=== PATIENT | male | born 1945 | race Caucasian/White ===

== ENCOUNTER 2017-02-18 13:25 | Observation (INO) ==
[2017-02-18] MEDS ORDERED: Ondansetron 4 MG/2 ML VIAL IVP ONE ×2 (13:37→15:15)
[2017-02-18] MEDS ORDERED: 0.9 % Sodium Chloride 1,000 ML IVC ONE ×2 (13:38→15:54)
--- NOTE | 2017-02-18 13:50 | Emergency Department Note ---
Disposition Clinical Impression: Diverticulitis large intestine w/o perforation or abscess w/bleeding, SELENE ( acute kidney injury), GI bleed Disposition: Admitted As Inpatient Condition: Fair Abdominal Pain HPI - General Chief Complaint: ED Abdominal Pain Stated Complaint: "abdominal pain, down middle to both sides" Time Seen by Provider: 02/18/17 13:30 Source: patient, EMS Mode of arrival: EMS Limitations: no limitations Nursing Notes Reviewed: Yes Vital Signs Reviewed: Yes - History of Present Illness HPI Narrative: Mr. Ann is a 72-year-old male with a past history of coronary artery disease, hyperlipidemia, hypertension, and constipation. He presents to the emergency department today with periumbilical abdominal pain that started 3 hours ago. He states that this radiates downwards and is severe. He states that he was walking earlier today and went and laid down for a nap, and then the pain started about an hour into his nap. He states that he has had a couple small bowel movements today and in the past couple days and describes them as black and tarry. However, he denies any hematochezia. This pain comes and goes and lasts about 15 minutes each episode. ROS: He denies fever but complains of chills, denies chest pain pressure, tightness, shortness of breath, back pain. Pain Scale: 9 - Related Data Allergies Allergy/AdvReac Type Severity Reaction Status Date / Time No Known Allergies Allergy Verified 02/18/17 13:28 Eyes: Denies: eye pain, eye discharge, vision change Cardiovascular: Denies: chest pain, dyspnea on exertion, orthopnea Respiratory: Denies: cough, dyspnea Gastrointestinal: Reports: abdominal pain, nausea, melena. Denies: vomiting Musculoskeletal: Denies: back pain Neurological: Denies: headache Endocrine: Denies: fatigue Abdominal Pain PMH - Past Medical History Medical history: Reports: coronary artery disease, hypertension Psychiatric history: Reports: no psych history - Social History Smoking status: Never smoker Alcohol use: Reports: none Drug use: Reports: none Physical Exam - General Limitations: no limitations General appearance: alert - Head Head exam: atraumatic, normocephalic, normal inspection - Eye Eye exam: Present: normal appearance - ENT ENT exam: normal exam, normal oropharynx, mucous membranes moist - Neck Neck exam: Present: normal inspection, full ROM, trachea midline - Respiratory Respiratory exam: Present: normal lung sounds bilaterally - Cardiovascular Cardiovascular exam: Present: normal rhythm, bradycardia, normal heart sounds - Abdominal Exam Abdominal exam: Present: tenderness. Absent: distention, guarding, Johnson's sign, tenderness at [place], pulsatile mass Abdominal tenderness: Present: LLQ, suprapubic Course Course Narrative: Mr. Ann presented to the emergency department with severe abdominal pain. Due to his history of coronary artery disease we wanted to rule out myocardial infarction with chest x-ray EKG and troponins. A CT of his abdomen was ordered to rule out diverticulitis. - Reevaluation(s) Reevaluation #1: Mr. Ann states that he started feeling a little better but not much after having a bowel movement 15 minutes ago the Zofran has helped with his nausea. Time: 14:15 Reevaluation #2: Mr. Ann is still having abdominal pain and has also had a couple episodes of diarrhea. His pain level has remained the same upon reevaluation. He continues to have diffuse tenderness to palpation in the lower abdomen. Vital Signs Temperature 97.4 F L 02/18/17 13:32 Pulse Rate 60 02/18/17 13:32 Respiratory Rate 20 02/18/17 13:32 Blood Pressure 130/83 02/18/17 13:32 O2 Sat by Pulse Oximetry 97 02/18/17 13:32 Temperature 97.4 F L 02/18/17 13:32 Pulse Rate 54 02/18/17 13:33 Respiratory Rate 16 02/18/17 13:33 Blood Pressure 110/51 02/18/17 13:33 O2 Sat by Pulse Oximetry 100 02/18/17 13:33 Oxygen Delivery Oxygen Delivery Nasal Cannula Abdominal Pain - [facility] Narrative Medical decision making narrative: Mr. Ann is a 72-year-old male with a past medical history of CAD, hypertension, hyperlipidemia that presented to the emergency department with severe lower abdominal pain that started approximately 3 hours ago that was associated with diarrhea and black tarry stools. His vital signs were normal except for bradycardia and this is most likely due to the metoprolol that he takes. Myocardial infarction was ruled out with a negative chest x-ray, and EKG demonstrating sinus bradycardia, and a negative troponin. A AAA was ruled out using ultrasound of the abdomen. A CT scan of the abdomen was performed and revealed diverticulitis. Labs reveal a leukocytosis, a creatinine of 1.6 which is new for him when comparing other labs from previous visits, as well as a positive Hemoccult. While in the emergency department, he was given IV fluids , ciprofloxacin as well as metronidazole. Due to the fact that he has a complicated diverticulitis, acute kidney injury, and a GI bleed, I thought it would be best to admit this gentleman to the hospital for inpatient treatment. I spoke with Dr. Johnson, the hospitalist and he agrees to accept this admission. - Lab Data Result diagrams: 02/18/17 15:21 02/18/17 15:21 Lab Results 02/18/17 02/18/17 02/18/17 Range/Units 14:15 14:15 14:59 WBC (4.3-11.1) K/mcL RBC (4.19-5.50) M/mcL Hgb (12.9-16.9) g/dL Hct (37.5-50.1) % MCV (83.0-100.0) fL MCH (28.0-33.3) pg MCHC (31.6-35.5) g/dL RDW (11.5-14.5) % Plt Count (140-400) K/mcL MPV (9.4-12.4) fL Immature Gran % (0-4) % Seg Neutrophils % % Lymphocytes % % Monocytes % % Eosinophils % % Basophils % % Neutrophils # (1.6-8.9) K/mcL Lymphocytes # (0.6-4.6) K/mcL Monocytes # (0.0-1.3) K/mcL Eosinophils # (0.0-0.6) K/mcL Basophils # (0.0-0.2) K/mcL Immature Plt Fraction (1.1-6.1) % Sodium (136-145) mEq/L Potassium (3.5-4.5) mEq/L Chloride (98-109) mEq/L Carbon Dioxide (19-29) mEq/L BUN (8-26) mg/dL Creatinine (0.72-1.25) mg/dL Est GFR ( Amer) (> 60) Est GFR (Non-Af Amer) (> 60) BUN/Creatinine Ratio (6-26) Glucose (70-99) mg/dL Calculated Osmolality (280-300) Calcium (8.6-10.8) mg/dL Total Bilirubin (0.2-1.2) mg/dL AST (5-34) Units/L ALT (0-55) Units/L Alkaline Phosphatase (38-126) Units/L Troponin I (0-0.03) ng/mL Serum Total Protein (6.0-8.3) g/dL Albumin (3.5-5.0) g/dL Globulin (2.4-3.5) g/dL Albumin/Globulin Ratio (1.1-2.2) Lipase (8-78) Units/L Urine Color Red A (Yellow) Urine Clarity Clear (Clear) Urine pH 6.0 (5.0-8.0) pH Units Ur Specific [place] 1.016 (1.010-1.025) Urine Protein 30 H (Neg-Trace) mg/dL Urine Glucose (UA) Normal (Normal) mg/dL Urine Ketones 15 H (Negative) mg/dL Urine Blood Negative (Negative) Urine Nitrite Negative (Negative) Urine Bilirubin Moderate H (Negative) Urine Urobilinogen 2.0 H (Normal) mg/dL Ur Leukocyte Esterase Small H (Negative) Urine Microscopic RBC 3-5 H (0-3) per hpf Urine Microscopic WBC 0-3 (0-3) per hpf Ur Squamous Epith Cells Moderate H (None-Few) per lpf Urine Bacteria None Seen (None-Few) per hpf Hyaline Casts Few (None-Few) per lpf Ur Culture Indicated? YES A (NO) Stool Occult Blood Positive A (Negative) Specimen Rejected Hemolyzed 02/18/17 02/18/17 02/18/17 Range/Units 15:21 15:21 15:21 WBC 18.8 H (4.3-11.1) K/mcL RBC 5.07 (4.19-5.50) M/mcL Hgb 15.6 (12.9-16.9) g/dL Hct 46.3 (37.5-50.1) % MCV 91.3 (83.0-100.0) fL MCH 30.8 (28.0-33.3) pg MCHC 33.7 (31.6-35.5) g/dL RDW 12.9 (11.5-14.5) % Plt Count 254 (140-400) K/mcL MPV 9.3 L (9.4-12.4) fL Immature Gran % 0.4 (0-4) % Seg Neutrophils % 87.9 % Lymphocytes % 4.9 % Monocytes % 6.5 % Eosinophils % 0.1 % Basophils % 0.2 % Neutrophils # 16.6 H (1.6-8.9) K/mcL Lymphocytes # 0.9 (0.6-4.6) K/mcL Monocytes # 1.2 (0.0-1.3) K/mcL Eosinophils # 0.0 (0.0-0.6) K/mcL Basophils # 0.0 (0.0-0.2) K/mcL Immature Plt Fraction 2.8 (1.1-6.1) % Sodium 137 (136-145) mEq/L Potassium 4.2 (3.5-4.5) mEq/L Chloride 106 (98-109) mEq/L Carbon Dioxide 22 (19-29) mEq/L BUN 34 H (8-26) mg/dL Creatinine 1.66 H (0.72-1.25) mg/dL Est GFR ( Amer) 50 L (> 60) Est GFR (Non-Af Amer) 41 L (> 60) BUN/Creatinine Ratio 20 (6-26) Glucose 129 H (70-99) mg/dL Calculated Osmolality 293 (280-300) Calcium 9.8 (8.6-10.8) mg/dL Total Bilirubin 1.7 H (0.2-1.2) mg/dL AST 21 (5-34) Units/L ALT 23 (0-55) Units/L Alkaline Phosphatase 61 (38-126) Units/L Troponin I 0.00 (0-0.03) ng/mL Serum Total Protein 7.2 (6.0-8.3) g/dL Albumin 3.8 (3.5-5.0) g/dL Globulin 3.4 (2.4-3.5) g/dL Albumin/Globulin Ratio 1.1 (1.1-2.2) Lipase 14 (8-78) Units/L Urine Color (Yellow) Urine Clarity (Clear) Urine pH (5.0-8.0) pH Units Ur Specific [place] (1.010-1.025) Urine Protein (Neg-Trace) mg/dL Urine Glucose (UA) (Normal) mg/dL Urine Ketones (Negative) mg/dL Urine Blood (Negative) Urine Nitrite (Negative) Urine Bilirubin (Negative) Urine Urobilinogen (Normal) mg/dL Ur Leukocyte Esterase (Negative) Urine Microscopic RBC (0-3) per hpf Urine Microscopic WBC (0-3) per hpf Ur Squamous Epith Cells (None-Few) per lpf Urine Bacteria (None-Few) per hpf Hyaline Casts (None-Few) per lpf Ur Culture Indicated? (NO) Stool Occult Blood (Negative) Specimen Rejected - Radiology Data Radiology results reviewed: Yes I reviewed the patient's radiology results. - EKG Data EKG results narrative: EKG performed at 1347 on 02/18/2017 Ventricular rate 49 bpm IN interval 193 MS QRS duration 99 MS QT/QTc 449/420 MS Normal axis Normal sinus bradycardia at a rate of 49 bpm - Core Measures AMI Core Measures Followed: Yes Attestation Statement - Attestation Attestation: I examined this patient and my medical decision-making was reviewed with the MANAGER FINANCIAL/PA/Advanced Practice Nurse/Resident Physician. I agree with the documented findings, disposition and treatment plan as described except to the extent set forth below.
--- NOTE | 2017-02-18 13:54 | Emergency Department Note ---
START Narrative - START START: I examined this patient and my medical decision-making was reviewed with the CHIEF OF INTERNAL MEDICINE/PA/Advanced Practice Nurse/Resident Physician. I agree with the documented findings, disposition and treatment plan as described except to the extent set forth below. Patient presents with abdominal pain and history of black tarry stools. Will need abdominal pain workup as well as possible GI bleed. EKG showed sinus bradycardia.
[2017-02-18 15:03] LABS: Bilirubin,Urine Moderate (Negative); Blood,Urine Negative (Negative); Clarity,Urine Clear (Clear); Color,Urine Red (Yellow); Glucose,Urine (UA) Normal (Normal); Ketones,Urine 15 mg/dL (Negative); Leukocyte Esterase,Urine Small (Negative); Nitrite,Urine Negative (Negative); Protein,Urine 30 mg/dL (Neg-Trace); Specific Gravity,Urine 1.016 (1.010-1.025)
[2017-02-18 15:05] LABS: Bacteria,Urine None Seen per hpf (None-Few); Squamous Epithelial Cell,Urine Moderate per lpf (None-Few); WBC,Urine 0-3 per hpf (0-3)
[2017-02-18 15:27] LABS: Hyaline Casts,Urine Few per lpf (None-Few)
[2017-02-18 15:28] LABS: Basophils % 0.2 %; Eosinophils % 0.1 %; Hematocrit 46.3 % (37.5-50.1); Hemoglobin 15.6 g/dL (12.9-16.9); Immature Granulocytes % 0.4 % (0-4); Immature Platelets 2.8 % (1.1-6.1); Lymphocytes # 0.9 K/mcL (0.6-4.6); Lymphocytes % 4.9 %; Mean Corpuscular HGB Conc 33.7 g/dL (31.6-35.5); Mean Corpuscular Hemoglobin 30.8 pg (28.0-33.3); Mean Corpuscular Volume 91.3 fL (83.0-100.0); Mean Platelet Volume 9.3 fL (9.4-12.4); Monocytes # 1.2 K/mcL (0.0-1.3); Monocytes % 6.5 %; Neutrophils # 16.6 K/mcL (1.6-8.9); Platelet Count 254 K/mcL (140-400); Red Blood Count 5.07 M/mcL (4.19-5.50); Red Cell Distribution Width 12.9 % (11.5-14.5); Segmented Neutrophils % 87.9 %
[2017-02-18 15:42] LABS: Albumin 3.8 g/dL (3.5-5.0); Albumin/Globulin Ratio 1.1 (1.1-2.2); Bilirubin,Total 1.7 mg/dL (0.2-1.2); Calcium 9.8 mg/dL (8.6-10.8); Globulin 3.4 g/dL (2.4-3.5); Potassium 4.2 mEq/L (3.5-4.5); Total Protein 7.2 g/dL (6.0-8.3)
[2017-02-18] MEDS ORDERED: *HR* Morphine 2 MG/ML SYRINGE IVP ONE (15:48)
[2017-02-18] MEDS ORDERED: MetroNIDAZOLE 500 MG/100 ML 500 MG/100 ML BAG IVPB ONE (16:09)
[2017-02-18] MEDS ORDERED: Pantoprazole 40 MG VIAL IVP SCH (16:15)
--- NOTE | 2017-02-18 16:25 | Electrocardiograph Report ---
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
[2017-02-18] MEDS: Pantoprazole 40 MG in 0.9 % Sodium Chloride Mini Bag 100 ML IVC SCH ×3 (16:50→22:25)
--- NOTE | 2017-02-18 17:09 | Internal Med History&Physical ---
Date of Encounter: 02/18/17 Time of Encounter: 16:45 Assessment and Plan (1) Diverticulitis large intestine w/o perforation or abscess w/bleeding Current visit: Yes Status: Acute Acute diverticulitis or inflammatory colitis seen on CT abdomen and pelvis Nothing by mouth IV fluids, IV pain control, IV Protonix, IV Zofran IV Flagyl IV Cipro Will need colonoscopy after acute flareup has improved Labs in a.m. (2) CAD (coronary artery disease) Current visit: Yes Status: Chronic Chronic, status post CABG Continue atorvastatin, hold aspirin in view of acute diverticulitis and possible GI bleed Qualifiers: Coronary Disease-Associated Artery/Lesion type: [place] artery [place] vs. transplanted heart: [place] heart Associated angina: without angina Qualified Code(s): I25.10 - Atherosclerotic heart disease of [place] coronary artery without angina pectoris (3) Essential hypertension Current visit: Yes Status: Chronic Controlled, monitor: Continue home meds (4) SELENE (acute kidney injury) Current visit: Yes Status: Acute Secondary to vomiting and diarrhea Continue IV fluids, labs in a.m. Internal Medicine - H&P: HPI Chief complaint: Abdominal pain Admitted From: Emergency Dept History of present illness: Mr. Ann is a 72 year old male with past medical history of hypertension and coronary artery disease. He presents to the ED with complaints of abdominal pain and vomiting and diarrhea. Patient states symptoms started this morning suddenly. Patient rates the pain about 7/10 and is cramping in nature. It is almost generalized but mainly the left lower quadrant. Worse with food intake. No alleviating factors. He does have associated nausea and vomiting. He has had several episodes of vomiting with no blood in emesis and is nonbilious. Patient also has had several episodes of diarrhea and his last bowel movement had some blood in it. Patient denies chest pain denies shortness of breath denies palpitations dizziness or headache or any other problems. No other associated symptoms. On examination patient is awake and alert not in any distress. His sisters are at bedside. Patient has been tolerating the ED and the initial findings or positive for acute diverticulitis or colitis seen on CT abdomen. Patient is being admitted for acute diverticulitis. Patient and family members have been explained about his condition and plan of care. They understood and agreed. No unanswered questions. Patient will be kept nothing by mouth, will be on IV fluids and IV pain control and IV Protonix. CODE STATUS full code. Past Med Surg Social Fam HX - Past Medical History Medical history: coronary artery disease, hypertension Psychiatric history: no psych history - Social History Smoking Status: Never smoker Smokeless Tobacco Status: No Alcohol use: none Drug use: none Internal Medicine - H&P: Meds Aspirin Enteric Coated [Aspirin EC] 81 mg PO DAILY 02/18/17 [History] Atorvastatin [Lipitor] 40 mg PO HS 02/18/17 [History] Carvedilol 3.125 mg PO BID 02/18/17 [History] Docusate [Colace] 100 mg PO HS 02/18/17 [History] Lisinopril [Zestril] 5 mg PO BID 02/18/17 [History] Loratadine [Claritin] 10 mg PO DAILY 02/18/17 [History] Ubidecarenone [Co Q-10] 10 mg PO DAILY 02/18/17 [History] Allergies No Known Allergies Allergy (Verified 02/18/17 13:28) All Systems PM: A 10-system review of systems was performed and is negative for pertinent findings except as documented above in the HPI. - Constitutional Constitutional: fatigue, weakness, no fever(s) - EENT Eyes: no blurry vision - Cardiovascular Cardiovascular ROS IM: no chest pain, no diaphoresis, no dyspnea, no dyspnea on exertion, no orthopnea, no syncope - Respiratory Respiratory: no cough, no dyspnea, no dyspnea on exertion, no wheezing, no chest congestion - Gastrointestinal Gastrointestinal: abdominal pain, cramping, nausea, vomiting, no hematemesis, no loose stools, no melena - Genitourinary Genitourinary ROS male: no dysuria - Neurological Neurological ROS: no abnormal gait, no abnormal speech, no dizziness, no numbness, no tingling - Constitutional Vitals: Temp Pulse Resp BP Pulse Ox 97.4 F L 54 16 110/51 100 02/18/17 13:32 02/18/17 13:33 02/18/17 13:33 02/18/17 13:33 02/18/17 13:33 General appearance: Present: A&O X 3, pleasant, no acute distress, answers questions appropriately - Head Head exam: Present: atraumatic - ENT ENT exam: Present: mucous membranes dry - Neck Neck exam general surgery: Present: supple - Respiratory Respiratory exam: Present: CTAB. Absent: rhonchi, wheezes, tachypnea - Cardiovascular Cardiovascular exam: Present: RRR, +S1, +S2 - GI/Abdominal GI/Abdominal exam: Present: soft, tenderness (Left lower quadrant). Absent: distended, firm, guarding, rigid - Extremities Exam Extremities exam: Present: radial pulses palpable and symetrical. Absent: cyanotic, tenderness - Neurological Exam Neurological exam: Present: alert, oriented X3, no focal deficits Internal Med - H&P Results - Labs CBC & Chem 7: 02/18/17 15:21 02/18/17 15:21
[2017-02-18] MEDS ORDERED: Pantoprazole 40 MG VIAL IVP ONE (17:16)
[2017-02-18] MEDS ORDERED: Naloxone 0.4 MG/ML INJ IVP PRN (17:23)
[2017-02-18] MEDS ORDERED: Ondansetron 4 MG/2 ML VIAL IVP PRN (17:23)
[2017-02-18] MEDS ORDERED: *HR* Morphine 2 MG/ML SYRINGE IVP PRN (17:23)
[2017-02-18] MEDS: 0.9 % Sodium Chloride 1,000 ML IVC SCH (17:30)
[2017-02-18 17:48] LABS: Magnesium 2.8 mg/dL (1.6-2.6)
[2017-02-18 17:58] LABS: INR 1.1
[2017-02-18] MEDS: MetroNIDAZOLE 500 MG/100 ML 500 MG/100 ML BAG IVPB SCH (21:41)
[2017-02-19] MEDS: 0.9 % Sodium Chloride 1,000 ML IVC SCH ×2 (02:52→15:31)
[2017-02-19] MEDS: Pantoprazole 40 MG in 0.9 % Sodium Chloride Mini Bag 100 ML IVC SCH ×2 (03:56→17:27)
[2017-02-19] MEDS: MetroNIDAZOLE 500 MG/100 ML 500 MG/100 ML BAG IVPB SCH ×4 (03:57→21:14)
[2017-02-19 04:26] LABS: Basophils % 0.1 %; Eosinophils % 0.1 %; Hematocrit 38.8 % (37.5-50.1); Hemoglobin 13.5 g/dL (12.9-16.9); Immature Granulocytes % 0.4 % (0-4); Lymphocytes # 1.4 K/mcL (0.6-4.6); Lymphocytes % 9.8 %; Mean Corpuscular HGB Conc 34.8 g/dL (31.6-35.5); Mean Corpuscular Hemoglobin 31.4 pg (28.0-33.3); Mean Corpuscular Volume 90.2 fL (83.0-100.0); Mean Platelet Volume 9.9 fL (9.4-12.4); Monocytes # 1.3 K/mcL (0.0-1.3); Monocytes % 8.8 %; Neutrophils # 11.5 K/mcL (1.6-8.9); Platelet Count 176 K/mcL (140-400); Red Cell Distribution Width 13.3 % (11.5-14.5); Segmented Neutrophils % 80.8 %
[2017-02-19 04:37] LABS: Alanine Aminotransferase 16 Units/L (0-55); Albumin/Globulin Ratio 1.1 (1.1-2.2); Alkaline Phosphatase 43 Units/L (38-126); Aspartate Amino Transferase 16 Units/L (5-34); BUN/Creatinine Ratio 22 (6-26); Bilirubin,Total 1.4 mg/dL (0.2-1.2); Blood Urea Nitrogen 29 mg/dL (8-26); Calcium 8.1 mg/dL (8.6-10.8); Carbon Dioxide 19 mEq/L (19-29); Chloride 112 mEq/L (98-109); Globulin 2.8 g/dL (2.4-3.5); Glucose 116 mg/dL (70-99); Osmolality,Calculated 293 (280-300); Potassium 4.3 mEq/L (3.5-4.5); Sodium 138 mEq/L (136-145); Total Protein 5.8 g/dL (6.0-8.3); eGFR For African Americans > 60 (> 60); eGFR For Non-African Americans 55 (> 60)
--- NOTE | 2017-02-19 08:54 | Internal Med Progress Note ---
Date of Encounter: 02/19/17 Time of Encounter: 08:52 - Assessment and plan (1) Diverticulitis large intestine w/o perforation or abscess w/bleeding Current Visit: Yes Status: Acute Assessment and plan: Acute sigmoid diverticulitis/colitis Continue ciprofloxacin and Flagyl IV day 2 May start some clear liquids, continue IV fluids, morphine as needed Consider surgical consult if needed/not improving (2) SELENE (acute kidney injury) Current Visit: Yes Status: Acute Assessment and plan: Likely secondary to dehydration Improving on IV fluids (3) GI bleed Current Visit: Yes Status: Acute Assessment and plan: Possible acute blood loss anemia secondary to acute diverticular bleed Hemoglobin has dropped from 15.6 down to 13.5 Will require a colonoscopy at a later time Monitor CBC, continue Protonix IV, consider transfusion if needed Qualifiers: GI bleed type/associated pathology: diverticulitis Qualified Code(s): K57.93 - Diverticulitis of intestine, part unspecified, without perforation or abscess with bleeding (4) CAD (coronary artery disease) Current Visit: Yes Status: Chronic Assessment and plan: Continue carvedilol and statin Qualifiers: Coronary Disease-Associated Artery/Lesion type: [place] artery [place] vs. transplanted heart: [place] heart Associated angina: without angina Qualified Code(s): I25.10 - Atherosclerotic heart disease of [place] coronary artery without angina pectoris (5) Essential hypertension Current Visit: Yes Status: Chronic Assessment and plan: Stable - Subjective Interval history: Complains of some abdominal tenderness but improved from yesterday, has had some episodes of hematochezia, no fevers, no chest pain or shortness of breath, no dysuria, - Constitutional Vitals: Temp Pulse Resp BP Pulse Ox 97.3 F L 54 16 112/60 97 02/19/17 08:01 02/19/17 08:01 02/19/17 08:01 02/19/17 08:01 02/19/17 08:01 General appearance: Present: A&O X 3, pleasant, no acute distress, answers questions appropriately - Head Head exam: Present: atraumatic, normocephalic - Eye Eye exam: Present: PERRL, conjuntiva pink, sclera anicteric Pupils: Present: PERRL - Neck Neck exam general surgery: Present: supple, trachea midline. Absent: lymphadenopathy - Respiratory Respiratory exam: Present: CTAB. Absent: accessory muscle use, rales, rhonchi, wheezes - Cardiovascular Cardiovascular exam: Present: RRR, +S1, +S2. Absent: diastolic murmur, gallop, rubs, systolic murmur - GI/Abdominal GI/Abdominal exam: Present: normal bowel sounds, soft, tenderness (Mild diffuse abdominal tenderness, no rebound), no peritoneal signs. Absent: distended, rebound - Extremities Exam Extremities exam: Present: warm, radial pulses palpable and symetrical. Absent : calf tenderness, cyanotic, pedal edema - Neurological Exam Neurological exam: Present: CN II-XII intact, oriented X3, no focal deficits. Absent: pronater drift, facial droop, speech deficit - Skin Skin exam: Present: dry, intact Internal Medicine: Result - Labs CBC & Chem 7: 02/19/17 03:55 02/19/17 03:55 Labs: Short CBC 02/19/17 Range/Units 03:55 WBC 14.3 H (4.3-11.1) K/mcL Hgb 13.5 D (12.9-16.9) g/dL Hct 38.8 (37.5-50.1) % Plt Count 176 (140-400) K/mcL Neutrophils # 11.5 H (1.6-8.9) K/mcL BMP 02/19/17 03:55 Sodium 138 Potassium 4.3 Chloride 112 H Carbon Dioxide 19 BUN 29 H Creatinine 1.29 H Glucose 116 H Calcium 8.1 L D Liver Function 02/19/17 Range/Units 03:55 Total Bilirubin 1.4 H (0.2-1.2) mg/dL AST 16 (5-34) Units/L ALT 16 (0-55) Units/L Alkaline Phosphatase 43 (38-126) Units/L Albumin 3.0 L D (3.5-5.0) g/dL - ABG Interpretation ABG results: PT/INR, D-dimer PT 12.0 Seconds (9.4-12.1) 02/18/17 14:44 - VTE Documentation of Mechanical Device: Intermittent pneumatic compression device Consult Discharge Plan - Plan Referrals: Milton Moeller DO [Primary Care Provider] -
[2017-02-19 12:33] LABS: Adenovirus F 40/41 PCR Not detected (Not detect); Astrovirus PCR Not detected (Not detect); C.difficile Toxin A/B by PCR Not detected (Not detect); Campylobacter by PCR Not detected (Not detect); Cryptosporidium by PCR Not detected (Not detect); Cyclospora cayetanensis PCR Not detected (Not detect); E. coli O157 by PCR Not detected (Not detect); Entamoeba histolytica PCR Not detected (Not detect); Enteroaggregative E.coli(EAEC) Not detected (Not detect); Enteropathogenic E.coli(EPEC) Not detected (Not detect); Enterotoxigenic E.coli (ETEC) Not detected (Not detect); Giardia lamblia PCR Not detected (Not detect); Norovirus GI/GII PCR Not detected (Not detect); Plesiomonas shigelloides PCR Not detected (Not detect); Rotavirus A PCR Not detected (Not detect); Salmonella PCR Not detected (Not detect); Sapovirus PCR Not detected (Not detect); Shig/EnteroinvasiveE coli EIEC Not detected (Not detect); Shigalike tox-prod E coli STEC Not detected (Not detect); Vibrio PCR Not detected (Not detect); Vibrio cholerae PCR Not detected (Not detect); Yersinia enterocolitica PCR Not detected (Not detect)
[2017-02-19] MEDS: Pantoprazole 40 MG VIAL IVP SCH (17:43)
[2017-02-20] MEDS: MetroNIDAZOLE 500 MG/100 ML 500 MG/100 ML BAG IVPB SCH ×2 (04:15→09:45)
[2017-02-20 05:27] LABS: Hematocrit 36.6 % (37.5-50.1); Hemoglobin 12.2 g/dL (12.9-16.9); Mean Corpuscular HGB Conc 33.3 g/dL (31.6-35.5); Mean Corpuscular Hemoglobin 30.4 pg (28.0-33.3); Mean Corpuscular Volume 91.3 fL (83.0-100.0); Mean Platelet Volume 9.5 fL (9.4-12.4); Platelet Count 148 K/mcL (140-400); Red Blood Count 4.01 M/mcL (4.19-5.50); Red Cell Distribution Width 13.6 % (11.5-14.5)
[2017-02-20] MEDS: 0.9 % Sodium Chloride 1,000 ML IVC SCH ×2 (05:34→15:38)
[2017-02-20] MEDS: Pantoprazole 40 MG VIAL IVP SCH ×2 (05:34→17:34)
[2017-02-20 05:40] LABS: BUN/Creatinine Ratio 15 (6-26); Calcium 7.8 mg/dL (8.6-10.8); Chloride 114 mEq/L (98-109); Glucose 107 mg/dL (70-99); Osmolality,Calculated 288 (280-300); Potassium 3.9 mEq/L (3.5-4.5); Sodium 138 mEq/L (136-145); eGFR For African Americans > 60 (> 60); eGFR For Non-African Americans > 60 (> 60)
[2017-02-20 06:00] LABS: Blood Urea Nitrogen 16 mg/dL (8-26)
[2017-02-20 06:18] LABS: Carbon Dioxide 17 mEq/L (19-29)
--- NOTE | 2017-02-20 09:33 | Internal Med Progress Note ---
Date of Encounter: 02/20/17 Time of Encounter: 09:31 - Assessment and plan (1) Diverticulitis large intestine w/o perforation or abscess w/bleeding Current Visit: Yes Status: Acute Assessment and plan: Acute sigmoid diverticulitis/colitis Continue ciprofloxacin and Flagyl IV day 3 Advance diet to low residue, continue IV fluids, morphine as needed Consider surgical consult if needed/not improving (2) SELENE (acute kidney injury) Current Visit: Yes Status: Acute Assessment and plan: Likely secondary to dehydration Resolved with IV fluids (3) GI bleed Current Visit: Yes Status: Acute Assessment and plan: Possible acute blood loss anemia secondary to acute diverticular bleed/ diverticulitis Hemoglobin has dropped from 15.6 down to 13.5 and 12.2 Will require a colonoscopy at a later time Hold aspirin Monitor CBC, continue Protonix IV, consider transfusion if needed Qualifiers: GI bleed type/associated pathology: diverticulitis Qualified Code(s): K57.93 - Diverticulitis of intestine, part unspecified, without perforation or abscess with bleeding (4) CAD (coronary artery disease) Current Visit: Yes Status: Chronic Assessment and plan: Continue carvedilol and statin Hold aspirin Qualifiers: Coronary Disease-Associated Artery/Lesion type: [place] artery [place] vs. transplanted heart: [place] heart Associated angina: without angina Qualified Code(s): I25.10 - Atherosclerotic heart disease of [place] coronary artery without angina pectoris (5) Essential hypertension Current Visit: Yes Status: Chronic Assessment and plan: Stable - Subjective Interval history: Denies any more abdominal tenderness, still has had some episodes of hematochezia, no fevers, no chest pain or shortness of breath, no dysuria, - Constitutional Vitals: Temp Pulse Resp BP Pulse Ox 98.0 F 49 16 123/64 97 02/20/17 07:58 02/20/17 07:58 02/20/17 07:58 02/20/17 07:58 02/20/17 07:58 General appearance: Present: A&O X 3, pleasant, no acute distress, answers questions appropriately - Head Head exam: Present: atraumatic, normocephalic - Eye Eye exam: Present: PERRL, conjuntiva pink, sclera anicteric Pupils: Present: PERRL - Neck Neck exam general surgery: Present: supple, trachea midline. Absent: lymphadenopathy - Respiratory Respiratory exam: Present: CTAB. Absent: accessory muscle use, rales, rhonchi, wheezes - Cardiovascular Cardiovascular exam: Present: RRR, +S1, +S2. Absent: diastolic murmur, gallop, rubs, systolic murmur - GI/Abdominal GI/Abdominal exam: Present: normal bowel sounds, soft, no peritoneal signs. Absent: distended, tenderness - Extremities Exam Extremities exam: Present: warm, radial pulses palpable and symetrical. Absent : calf tenderness, cyanotic, pedal edema - Neurological Exam Neurological exam: Present: CN II-XII intact, oriented X3, no focal deficits. Absent: pronater drift, facial droop, speech deficit - Skin Skin exam: Present: dry, intact Internal Medicine: Result - Labs CBC & Chem 7: 02/20/17 05:12 02/20/17 05:12 Labs: Short CBC 02/20/17 Range/Units 05:12 WBC 9.6 (4.3-11.1) K/mcL Hgb 12.2 L (12.9-16.9) g/dL Hct 36.6 L (37.5-50.1) % Plt Count 148 (140-400) K/mcL BMP 02/20/17 05:12 Sodium 138 Potassium 3.9 Chloride 114 H Carbon Dioxide 17 L BUN 16 D Creatinine 1.10 Glucose 107 H Calcium 7.8 L - ABG Interpretation ABG results: PT/INR, D-dimer PT 12.0 Seconds (9.4-12.1) 02/18/17 14:44 - VTE Documentation of Mechanical Device: Intermittent pneumatic compression device Consult Discharge Plan - Plan Referrals: Milton Moeller DO [Primary Care Provider] -
[2017-02-20] MEDS: metroNIDAZOLE 500 MG TABLET PO SCH ×2 (16:03→20:50)
[2017-02-21] MEDS: Pantoprazole 40 MG VIAL IVP SCH (05:46)
[2017-02-21 07:21] VITALS: BP 165/78
[2017-02-21] MEDS: 0.9 % Sodium Chloride 1,000 ML IVC SCH (09:16)
[2017-02-21] MEDS: metroNIDAZOLE 500 MG TABLET PO SCH (09:18)
[2017-02-21 09:49] LABS: Hematocrit 44.6 % (37.5-50.1); Mean Corpuscular Hemoglobin 30.6 pg (28.0-33.3); Mean Corpuscular Volume 92.7 fL (83.0-100.0); Mean Platelet Volume 9.9 fL (9.4-12.4); Platelet Count 181 K/mcL (140-400); Red Blood Count 4.81 M/mcL (4.19-5.50); Red Cell Distribution Width 13.2 % (11.5-14.5)
[2017-02-21 09:50] LABS: Hemoglobin 14.7 g/dL (12.9-16.9)
[2017-02-21 10:01] LABS: BUN/Creatinine Ratio 12 (6-26); Blood Urea Nitrogen 14 mg/dL (8-26); Calcium 8.8 mg/dL (8.6-10.8); Carbon Dioxide 24 mEq/L (19-29); Chloride 106 mEq/L (98-109); Glucose 147 mg/dL (70-99); Osmolality,Calculated 289 (280-300); Potassium 3.7 mEq/L (3.5-4.5); Sodium 138 mEq/L (136-145); eGFR For African Americans > 60 (> 60); eGFR For Non-African Americans > 60 (> 60)
--- NOTE | 2017-02-21 10:20 | Discharge Summary ---
Date of Encounter: 02/21/17 Time of Encounter: 10:17 - Discharge Diagnosis (1) Diverticulitis large intestine w/o perforation or abscess w/bleeding Priority: Primary Status: Acute Comments: Acute sigmoid diverticulitis/colitis (2) SELENE (acute kidney injury) Priority: Primary Status: Acute (3) GI bleed Priority: Primary Status: Acute Comments: Possible acute blood loss anemia secondary to acute diverticular bleed/ diverticulitis Hemoglobin has dropped from 15.6 down to 13.5 , 12.2, today is 14.7 and there have not been any more episodes of bleeding Will require a colonoscopy at a later time Aspirin was held Qualifiers: GI bleed type/associated pathology: diverticulitis Qualified Code(s): K57.93 - Diverticulitis of intestine, part unspecified, without perforation or abscess with bleeding (4) CAD (coronary artery disease) Priority: Secondary Status: Chronic Qualifiers: Coronary Disease-Associated Artery/Lesion type: [place] artery [place] vs. transplanted heart: jena heart Associated angina: without angina Qualified Code(s): I25.10 - Atherosclerotic heart disease of j[place] coronary artery without angina pectoris (5) Essential hypertension Priority: Secondary Status: Chronic - Discharge Medications Prescriptions: Ciprofloxacin [Cipro] 500 mg PO BID #8 tablet metroNIDAZOLE [Flagyl] 500 mg PO TID #12 tablet Home Medications: Aspirin Enteric Coated [Aspirin EC] 81 mg PO DAILY 02/18/17 [History] Atorvastatin [Lipitor] 40 mg PO HS 02/18/17 [History] Carvedilol 3.125 mg PO BID 02/18/17 [History] Docusate [Colace] 100 mg PO HS 02/18/17 [History] Lisinopril [Zestril] 5 mg PO BID 02/18/17 [History] Loratadine [Claritin] 10 mg PO DAILY 02/18/17 [History] Ubidecarenone [Co Q-10] 10 mg PO DAILY 02/18/17 [History] Ciprofloxacin [Cipro] 500 mg PO BID #8 tablet 02/21/17 [Rx] metroNIDAZOLE [Flagyl] 500 mg PO TID #12 tablet 02/21/17 [Rx] Allergies/Adverse Reactions: Allergies No Known Allergies Allergy (Verified 02/18/17 13:28) Procedures/tests Complete & Pending: Procedures Performed prior 72 hours Category Date Time Status ECG 12 lead ECG [ECG] Routine Y 02/18/17 17:23 Ordered Date of admission: 02/18/17 16:25 Primary care physician: Milton Moeller DO Consults: 02/18/17 17:25 Consult to Trim Mechanic [CONS] Routine Reason for SW Consult: Discharge planning - Patient Status Disposition: Home, Self-Care Condition: Good Overall status at discharge: patient is back to baseline - Discharge Instructions Follow Up With: Angelika Nicole CNP [Advanced Practice Nurse] - 02/25/17 11:00 am Milton Moeller DO [Primary Care Provider] - Additional Instructions: Follow-up with primary care physician within the next 7 days. Follow-up with the GI service within the next month to schedule a colonoscopy in the future. Continue ciprofloxacin and Flagyl for 4 more days, do not take alcohol while being on Flagyl. Low residue diet - Diet and Activity Activity: increase activity as tolerated Diet: low fat, low cholesterol (Low residue) Hospital course: Mr. Ann is a 72 year old male past medical history of hypertension and coronary artery disease. He presented to the ED with complaints of abdominal pain , vomiting and diarrhea. Patient stated symptoms started suddenly. Patient rated the pain about 7/10 and is cramping in nature. It is almost generalized but mainly the left lower quadrant. Worse with food intake. No alleviating factors. Had associated nausea and vomiting. He had several episodes of vomiting with no bloody emesis and is nonbilious. Patient also had several episodes of diarrhea and his last bowel movement had some blood in it. Initial findings were positive for acute sigmoid diverticulitis or colitis seen on CT abdomen. Was admitted to the hospital and was started on ciprofloxacin and IV Flagyl. The patient improved. His creatinine came down from 1.66 down to 1.19 with IV fluids. Feels much better at the moment is ready to be discharged. Hemoglobin is stable and there is no evidence of bleeding. He is to follow-up with GI in order to have a colonoscopy within the next 6 weeks - Time Spent with Patient Total time spent providing and/or coordinating discharge services: Greater than 30 minutes (40 min) - Constitutional Vitals: Temp Pulse Resp BP Pulse Ox 98.1 F 47 16 165/78 98 02/21/17 07:17 02/21/17 07:17 02/21/17 07:17 02/21/17 07:17 02/21/17 07:17 General appearance: Present: A&O X 3, pleasant, no acute distress, answers questions appropriately - Head Head exam: Present: atraumatic, normocephalic - Eye Eye exam: Present: PERRL, conjuntiva pink, sclera anicteric Pupils: Present: PERRL - Neck Neck exam general surgery: Present: supple, trachea midline. Absent: lymphadenopathy - Respiratory Respiratory exam: Present: CTAB. Absent: accessory muscle use, rales, rhonchi, wheezes - Cardiovascular Cardiovascular exam: Present: RRR, +S1, +S2. Absent: diastolic murmur, gallop, rubs, systolic murmur - GI/Abdominal GI/Abdominal exam: Present: normal bowel sounds, soft, no peritoneal signs. Absent: distended, tenderness - Extremities Exam Extremities exam: Present: warm, radial pulses palpable and symetrical. Absent : calf tenderness, cyanotic, pedal edema - Neurological Exam Neurological exam: Present: CN II-XII intact, oriented X3, no focal deficits. Absent: pronater drift, facial droop, speech deficit - Skin Skin exam: Present: dry, intact - VTE Documentation of Mechanical Device: Intermittent pneumatic compression device
== END 2017-02-21 11:00 | disposition home or self-care (01) ==
LOC: 3ANU 13:25 → EMEROO 13:25 → SUATTDRO 16:25 → 3ANU 18:00
PROVIDERS: ADMIT Internal Medicine; ATTEND Internal Medicine